=== PATIENT | female | born 1970 | race African-American/Black ===

== ENCOUNTER 2023-04-14 11:53 | Emergency (ER) | payer OTHER ==
[~2023-04-14] VITALS: Ht 167.6 cm; Wt 81.2 kg
[~2023-04-14 11:53] MED LIST: ACYC1TAB3 PO; ALPR0.5T7 PO; AMIT25TA20 PO; HYDR200T36 PO; INHALER; PREG75CA PO; [UNRECOGNIZED DRUG - CODE] PO
[2023-04-14 14:10] VITALS: BP 133/73; PULSE 92; RESP 16; TEMP 99.2; O2SAT 100
[2023-04-14] MEDS ORDERED: methylPREDNISolone SOD SUCC 125 MG/2 ML VL IM ONE (14:45)
[2023-04-14] MEDS ORDERED: KETOROLAC TROMETH 60MG/2ML VIAL IM ONE (14:45)
[2023-04-14] MEDS ORDERED: NAPR-746 PO (15:14)
[2023-04-14] MEDS ORDERED: PRED20TA2 PO (15:14)
== END 2023-04-14 15:16 | disposition home or self-care (01) ==
LOC: ER 11:53
DX: M25.511 Pain in right shoulder (principal); M25.532 Pain in left wrist; M25.572 Pain in left ankle and joints of left foot; M25.571 Pain in right ankle and joints of right foot; M32.10 Systemic lupus erythematosus, organ or system involvement unspecified; Z87.442 Personal history of urinary calculi; Z79.899 Other long term (current) drug therapy
CPT/HCPCS: 96372; 99284; J1885; J2930

== ENCOUNTER 2023-04-22 21:14 | Emergency (ER) | payer OTHER ==
[~2023-04-22] VITALS: Ht 167.6 cm; Wt 79.0 kg
[~2023-04-22 21:14] MED LIST changes: +NAPR-746 PO; +PRED20TA2 PO
[2023-04-22] MEDS ORDERED: methylPREDNISolone SOD SUCC 500 MG in SODIUM CHL 0.9% 100 ML IV ONE (22:15)
[2023-04-22 22:34] LABS: Mean Corpuscular Hemoglobin 24.8 pg (28.0-32.0); Mean Corpuscular Volume 81.1 fL (80.0-100.0)
[2023-04-22 22:36] LABS: Hemoglobin 8.8 g/dL (12.2-16.2); Mean Corpuscular Hgb Conc. 30.5 g/dL (32.0-36.0); Red Blood Cells 3.57 10^6/uL (4.0-5.20); Red Cell Distribution Width 14.3 % (11.8-14.3); White Blood Cell 26.3 10^3/uL (4.4-10.8)
[2023-04-22 22:42] LABS: Basophils % (manual) 0 (0.0-2.0); Blast Cells 0; Eosinophils % (manual) 0 (0-7); Metamyelocytes % 0; Myelocytes % 0; Promyelocytes % 0; Reactive Lymphocytes 0
[2023-04-22 22:51] LABS: Alanine Aminotransferase 11 U/L (7-40); Albumin 2.9 g/dL (3.2-4.8); Alkaline Phosphatase 156 U/L (46-116); Anion Gap 9 (5-15); Aspartate Aminotransferase 31 U/L (13-40); BUN/Creatinine Ratio 23.1 (10.0-20.0); Blood Urea Nitrogen 18 mg/dL (9-23); Calcium 8.9 mg/dL (8.7-10.4); Carbon Dioxide 21 mmol/L (20-30); Chloride 109 mmol/L (98-107); Glucose 139 mg/dL (74-106); Potassium 3.3 mmol/L (3.5-5.1); Sodium 139 mmol/L (136-145)
[2023-04-22 22:52] LABS: Bilirubin, Total 1.4 mg/dL (0.2-1.0); Total Protein 6.7 g/dL (5.7-8.2)
[2023-04-22 23:00] LABS: Band Neutrophils % (manual) 9; Lymphocytes % (manual) 8 (10.0-50.0); Monocytes % (manual) 3 (0-12)
[2023-04-22 23:01] LABS: Platelet Estimate Adequate
[2023-04-22 23:21] LABS: Erythrocyte Sedimentation Rate 103 mm/hr (0-20)
[2023-04-23] MEDS ORDERED: INDO75CA PO (03:28)
[2023-04-23 03:50] VITALS: BP 120/77; PULSE 110; RESP 13; TEMP 98.3; O2SAT 100
== END 2023-04-23 04:05 | disposition home or self-care (01) ==
LOC: EDBD 21:14 → ER 21:14
DX: M32.8 Other forms of systemic lupus erythematosus (principal); Z87.442 Personal history of urinary calculi
CPT/HCPCS: 36415; 80053; 85007; 85027; 85652